=== PATIENT | male | born 1990 | race Caucasian/White ===

== ENCOUNTER → 2024-09-27 | Outpatient (CLI) | payer BC, SELFPAY ==
[2024-09-27] VITALS (8 sets, daily range): BP systolic 114–125; BP diastolic 63–79; PULSE 73–96; RESP 16–20; TEMP 36.7; O2SAT 94–97; BMI 36.6
--- NOTE | 2024-09-27 14:00 | CT_ITS ---
STUDY: CT CHEST WITH CONTRAST REASON FOR EXAM: Male, 34 years old. ABNORMAL STRESS TEST, CP LIMITED CHEST OVER READ ONLY RADIATION DOSAGE (If Supplied By Facility): CTDIvol = ( 40.70 ) mGy, DLP = ( 1999.37 ) mGycm TECHNIQUE: Transaxial imaging was performed following intravenous administration of IV 75mL Isovue-370. Individualized dose optimization techniques were used for this CT. COMPARISON: No relevant priors. FINDINGS: CHEST The lungs are normal. There is no demonstrated pleural abnormality. Normal heart and pericardium. No coronary artery calcification. Normal mediastinum. Normal hilar regions. Normal unenhanced pulmonary arteries. Normal aorta arch and descending thoracic aorta. Normal osseous structures. Fenestration of the liver. CT/Limited Chest CT Cardiac Only IMPRESSION: Normal enhanced CT chest. Electronically Signed: Leobardo Perez MD at 13:03 EDT ,
[2024-09-27] MEDS: 0.9% Saline Lock 10 ML Syringe IV ×2 (14:15→14:26)
[2024-09-27] MEDS: Metoprolol Tartrate 5 MG/5 ML Vial IV ×2 (14:15→14:26)
[2024-09-27] MEDS: Nitroglycerin SL (ED/IMG/CATH) 0.4 MG TABLET SL (14:47)
--- NOTE | 2024-09-27 17:41 | CCTA.WCONT ---
CCTA w/Cont Coronary Arteries Date of Study:: 09/27/24 Abnormal stress test Coronary Calcium Scoring: High-resolution Computed Tomographic imaging of the chest was performed on [09/27/2024], with particular attention paid to the coronary arteries. Intravenous contrast agent was administered per protocol and images reconstructed and displayed. LEFT MAIN CORONARY ARTERY: Arises from the left coronary cusp and is noted to have no significant stenosis it bifurcates the left anterior descending artery and left circumflex artery [] LEFT ANTERIOR DESCENDING CORONARY ARTERY: Medium size vessel which tapers in the midsegment it gives off a first diagonal branch and no significant atherosclerotic plaque is noted. There is no coronary calcification present. [] LEFT CIRCUMFLEX CORONARY ARTERY: Nondominant vessel with no significant atherosclerotic plaquing noted no calcification present no major luminal irregularities present. [] RIGHT CORONARY ARTERY: Dominant right coronary artery arising from the right coronary cusp and terminating with a posterior descending artery and a posterolateral vessel. No significant atherosclerotic plaque is noted. No coronary calcification is present. Conclusion: Technically limited study due to patient body size. However no significant atherosclerotic plaquing or obstruction is noted in any of the 3 major vessels.
--- OUTSIDE RECORDS SUMMARY | 2024-09-27 19:21 | XMS RPT_ITS | CCD ---
Author Organization [facility] Care Team Providers Care Affirmative Action Specialist Name Role Phone AA NO PCP, NO PCP Primary Care Unavailable RODRIGO HIRSCH Attending UnavailRODRIGO Monahan Admitting UnavailRODRIGO Monahan Admitting Unavailabl e AA NO PCP, NO PCP Primary Care Unavailable RODRIGO HIRSCH Attending Unavailcatrina e SANTOS, MD ANSON DEY Referring Unava ilable WAKER, MD ANSON DEY Attending Unava ilable WAKER, MD ANSON DEY Primary Care Radhava ilable SANTOS, MD ANSON DEY Primary Care Radhava ilable WAKESandra, MD ANSON DEY Referring Unava ilable WAKER, MD ANSON DEY Attending Radhava ilable WAKEANSON Flores Attending Unavailable ANSON GRAHAM Primary Care Unavailable Anson Graham MD Primary Care Provider [phone] Anson Graham MD Unavailable Medications Current Medications Medication Drug Class(es) Dates Sig (Normalized) Sig (Original) benzoyl peroxide 0.05 mg/mg / clindamycin 0.01 mg/mg topical gel (1 source) Lincosamide Antibacterial Start: 08-29-2022 clindamycin-benzoy l peroxide (BenzacLIN) gel Apply topically. 0 08/29/2022 Active dextromethorphan-b upropion 45-105 mg tablet, IR and ER, biphasic (1 source) Start: 12-24-2023 End: 07-11-2024 take 1 tablet by mouth twice daily dextromethorphan-b upropion 45-105 mg tablet, IR and ER, biphasic Indications: Anxiety , Moderate episode of recurrent major depressive disorder (CMS/HCC) Take 1 tablet by mouth 2 times a day. 200 tablet 1 12/24/2023 07/11/2024 Active ketoconazole 20 mg/ml medicated shampoo (1 source) Azole Antifungal Start: 05-18-2014 ketoconazole (NIZOral) 2 % shampoo Ketoconazole 2 % External Shampoo Quantity: 120 Refills: 0 Start : 18-May-2014 Active 0 05/18/2014 Active 24 hr venlafaxine 225 mg extended release oral tablet (2 sources) Serotonin and Norepinephrine Reuptake Inhibitor Start: 09-01-2023 End: 07-11-2024 take 1 tablet by mouth once daily venlafaxine 225 mg 24 hr tablet Indications: Anxiety , Current mild episode of major depressive disorder, unspecified whether recurrent (CMS/HCC) Take 1 tablet (225 mg) by mouth once daily. 100 tablet 1 12/24/2023 07/11/2024 Active Problems Problem Classification Problem Date Documented Da te Episodic/Chronic Anxiety disorders (3 sources) Anxiety disorder, unspecified; Translations: [Anxiety] Onset: 12-24-2023 Chronic Mood disorders (6 sources) Major depressive disorder, recurrent, moderate; Translations: [Major depressive disorder, single episode, mild] Onset: 12-24-2023 Chronic Results Test Name Value Interpretation Reference Range Facility Cardiology Reporton 07-11-20 Cardiology Report [facility] [address] [address] CARDIOLOGY PATIENT NAME: TAIWO JUSTIN DATE OF : 1990 MED REC #: [id number] PT LOCATION: CAR PT TYPE: CLN AGE: 31 SEX: M ADMISSION DATE: 07/11/2021 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 He has no significant past medical history. This test is being done for preemployment screening for the [employer]. PROCEDURE: The patient exercised for a total of 12 minutes 18 seconds on a Julian protocol, achieving a maximal heart rate of 173 bpm (91% of age-predicted maximal heart rate, estimated workload 13.9 METS). Baseline heart rate was 87 beats per minute. Baseline blood pressure 140/85. The blood pressure at peak exercise was 180/60. The test was terminated due to fatigue. At no time during the test did the patient describe chest discomfort. Baseline electrocardiogram demonstrated normal sinus rhythm at a rate of 87 beats per minute. There were inferior, anterior, and lateral T-wave abnormalities at baseline. There was T-wave inversion in these leads. With exercise, there were no significant supraventricular nor ventricular arrhythmias noted. At peak exercise, there was at least a millimeter of flat ST-segment depression in both the inferior and lateral leads. Typically, this would suggest inducible ischemia, but is somewhat less specific given the baseline T-wave abnormalities. IMPRESSION: 1. Abnormal treadmill stress test for inducible ischemia at a good workload. 2. Patient develops [address]-segment depression in both the inferior and lateral leads with exertion. Typically, this would suggest inducible ischemia, but is somewhat less specific given the baseline T-wave abnormalities. 3. If further information is required regarding ischemia, would consider a stress test with imaging. 4. Good to excellent exercise capacity for age. Akira Jesus MD [id number] SSI File#: [id number] CC: Rodrigo Hirsch, [facility] EDUARDO XR Chest 1 view-APon EDUARDO XR Chest 1 view-AP CLINICAL INFORMATION: Employment chest radiograph. Frontal view of the chest are provided without comparison. FINDINGS: The cardiac silhouette and mediastinum are within normal limits. The lungs are free of infiltrate or pleural effusion. The visualized soft tissues are unremarkable. IMPRESSION: 1. No evidence of an acute cardiopulmonary process. Report Dictated on Authenticated by: Amish Higuera On: 07/04/2021 00:20 Read by: AMISH HIGUERA MD Date: 07/04/2021 00:20 [facility] Vital Signs Date Time Vital Sign Value Performing Clinician Facility 12-24-2023 11:39-0500 Body height 182.9 cm Anson Graham MD Work Phone: [facility] 12-24-2023 11:39-0500 Body mass index (BMI) [Ratio] 35.4 kg/m2 Anson Graham MD Work Phone: [facility] 12-24-2023 11:39-0500 Body temperature 97.3 [degF] Anson Graham MD Work Phone: [facility] 12-24-2023 11:39-0500 Body weight 118.39 kg Anson Graham MD Work Phone: [facility] 12-24-2023 11:39-0500 Diastolic blood pressure 76 mm[Hg] Anson Graham MD Work Phone: [facility] 12-24-2023 11:39-0500 Heart rate 80 /min Anson Graham MD Work Phone: [facility] 12-24-2023 11:39-0500 Respiratory rate 16 /min Anson Graham MD Work Phone: [facility] 12-24-2023 11:39-0500 SaO2% (BldA) [Mass fraction] 97 % Anson Graham MD Work Phone: [facility] 12-24-2023 11:39-0500 Systolic blood pressure 102 mm[Hg] Anson Graham MD Work Phone: [facility] Encounters Encounter Date Encounter Type Care Provider Facility Start: 12-24-2023 End: 12-25-2023 ambulatory ANSON GRAHAM [facility] Start: 12-24-2023 End: 12-24-2023 Office outpatient visit 15 minutes Anson Graham MD Work Phone: [facility] Comment on above: Anxiety (Primary Dx) ; Moderate episode of recurrent major depressive disorder (CMS/HCC); Current mild episode of major depressive disorder, unspecified whether recurrent (CMS/HCC) Start: 03-02-2023 ambulatory MD ANSON COSTA [facility] Facility:[id number] Start: 08-29-2022 ambulatory MD ANSON COSTA [facility] Facility:[id number] Start: 07-11-2021 End: 07-11-2021 amb[facility] Start: 07-03-2021 End: 07-03-2021 ambulatory NO PCP AA NO PCP [facility] Procedures Date Procedure Procedure Detail Performing Clinician Start: 02-28-2022 Lipid 1996 panel - S go or Plasma Anson Graham MD Work Phone: Plan of Treatment Date Care Activity Detail Author Start: 2040 Zoster Vaccines (1 of 2) Zoste r Vaccines (1 of 2) [facility] Start: 02-28-2027 Lipid panel Lipid Panel [facility] Start: 11-06-2026 DTaP/Tdap/Td Vaccine s (2 - Td or Tdap) DTaP/Tdap/Td Vaccines (2 - Td or Tdap) [facility] Start: 07-31-2023 COVID-19 Vaccine ( season) COVID-19 Vaccine ( season) [facility] Start: 07-31-2023 Influenza vaccination Influenza Vacc ine (#1) [facility] Start: 12-17-2009 MMR Vaccines (1 of 1 - Standard series) MMR Vaccines (1 of 1 - Standard series) [facility] Start: 12-17-2009 Varicella vaccination Varicell a Vaccines (1 of 2 - 2-dose childhood series) [facility] Start: 2008 Hepatitis C screening Hepatitis C [place] [facility] Start: 1990 Hepatitis B Vaccines (1 of 3 - 3-dose series) Hepatitis B Vaccines (1 of 3 - 3-dose series) [facility] Start: 1990 HIV screening HIV Screening [facility] Start: 1990 Yearly Adult Physical Yearly Adult P hysical [facility] Immunizations Immunization Date Immunization Notes Care Provider Fa faye 08-29-2010 influenza virus vaccine, unspecified formulation Anson Graham MD Work Phone: [facility] Work Phone: Payers Date Payer Category Payer Unknown [id number] 2021 Unknown KENNETH BRANDT P [id number] 2021-Present [address] [place] [address] [id number] 1990 Unknown [id number] 1990 Unknown [id number] 1990 Unknown [id number] 1959 Unknown [id number] 1959 Unknown 0 Unknown [id number] Unknown [id number] Social History Date Type Detail Facility Tobacco smoking status NHIS Tobacco smoking consumption unknown [facility] Work Phone: Start: 1990 Sex Assigned At Not on file [facility] Work Phone: Gender identity Not on file [facility] Work Phone: Start: 12-14-2023 End: 12-24-2023 Exposure to SARS-CoV-2 (event) Not sure [facility] History of Present illness Narrative 12-24-2023 Anson Graham MD - 12/24/2023 11:40 AM EST Note Date & Type Note Facility 12-24-2023 History of Present illness Narrative Primary Care Physician: Anson Graham MD Date of Visit: 12/24/2023 Chief Complaint: Chief Complaint Patient presents with Med Refill Subjective: Taiwo Justin is a 33 y.o. male presents HPI: HPI Deperes/anxiety He and his have . He moved back home to [place]. Just found out that his mother has a lump in her breast and she needs a bx. Says that the effexor still helps, but he is not sure that it is helping as much as it used to. Dwp trial of auvelity. He is willing to try. Past Medical History: No past medical history on file. Social History: Family History: family history is not on file. Allergies: No Known Allergies Outpatient Medications: Current Outpatient Medications Medication Instructions clindamycin-benzoyl peroxide (BenzacLIN) gel Topical ketoconazole (NIZOral) 2 % shampoo Ketoconazole 2 % External Shampoo Quantity: 120 Refills: 0 Start : 18-May-2014 Active venlafaxine 225 mg, oral, Daily ROS: Review of Systems Psychiatric/Behavioral: Positive for dysphoric mood. Vitals: BP 102/76 (BP Location: Right arm, Patient Position: Sitting, BP Cuff Size: Adult) Pulse 80 Temp 36.3 C (97.3 F) (Temporal) Resp 16 Ht 1.829 m (6') Wt 118 kg (261 lb) SpO2 97% BMI 35.40 kg/m Wt Readings from Last 2 Encounters: 12/24/23 118 kg (261 lb) Physical Exam: Physical Exam Constitutional: Appearance: Normal appearance. HENT: Head: Normocephalic and atraumatic. Cardiovascular: Rate and Rhythm: Normal rate and regular rhythm. Heart sounds: Normal heart sounds. No murmur heard. Pulmonary: Effort: Pulmonary effort is normal. Breath sounds: Normal breath sounds. No wheezing, rhonchi or rales. Neurological: Mental Status: He is alert and oriented to person, place, and time. Sensory: Sensation is intact. Motor: Motor function is intact. Assessment/Plan Diagnoses and all orders for this visit: Anxiety - dextromethorphan-bupropion 45-105 mg tablet, IR and ER, biphasic; Take 1 tablet by mouth 2 times a day. - venlafaxine 225 mg 24 hr tablet; Take 1 tablet (225 mg) by mouth once daily. Moderate episode of recurrent major depressive disorder (CMS/HCC) - dextromethorphan-bupropion 45-105 mg tablet, IR and ER, biphasic; Take 1 tablet by mouth 2 times a day. Current mild episode of major depressive disorder, unspecified whether recurrent (CMS/HCC) - venlafaxine 225 mg 24 hr tablet; Take 1 tablet (225 mg) by mouth once daily. Orders: No orders of the defined types were placed in this encounter. Followup Appts: No future appointments. Asnon Graham MD documented in this encounter [facility] Work Phone: Evaluation note Note Date & Type Note Facility Evaluation note Diagnosis Anxiety- Primary Anxiety state, unspecified Moderate episode of recurrent major depressive disorder (CMS/HCC) Current mild episode of major depressive disorder, unspecified whether recurrent (CMS/HCC) documented in this encounter [facility] Work Phone: Summary Purpose Family History No Family History Records FoundNo Family History Records FoundNo Family History Records Found Advance Directives No Advanced Directives Records FoundNo Advanced Directives Records FoundNo Advanced Directives Records Found Additional Source Comments (unrecognized sect ion and content) No Status Records FoundNo Status Records FoundNo Status Records Found INFORMATION SOURCE (unrecogn ized section and content) DATE CREATED AUTHOR 07/27/2021 [facility] DATE CREATED AUTHOR AUTHOR'S ORGANIZ ATION 03/05/2023 [facility] DATE CREATED AUTHOR AUTHOR'S ORGANIZ ATION 12/28/2023 [facility] Ambulatory Reason for Visit (unrecogniz ed section and content) Reason Comments Med Refill Care Teams (unrecognized sec tion and content) Affirmative Action Specialist Relationship Specialty Start Date End Date Anson Graham MD [address] [place] [address] PCP - General 09/07/19 Anson Graham MD [address] [place] [address] JSOE - Kenneth CHAVEZO PCP 05/30/22 FOR RECORDS PERTAINING TO PATIENTS WHO ARE OR HAVE BEEN ENROLLED IN A CHEMICAL DEPENDENCY/SUBSTANCEABUSE PROGRAM, SOME INFORMATION MAY BE OMITTED. This clinical summary was aggregated from multiple sources. Caution should be exercised in using it in the provision of clinical care. This summary normalizes information from multiple sources, and as a consequence, information in this document may materially change the coding, format and clinical context of patient data. In addition, data may be omitted in some cases. CLINICAL DECISIONS SHOULD BE BASED ON THE PRIMARY CLINICAL RECORDS. [facility]. provides no warranty or guarantee of the accuracy or completeness of information in this document.
== END | disposition home or self-care (01) ==
PROVIDERS: Referring Provider Internal Medicine Cardiovascular Disease; Visit Provider Internal Medicine Cardiovascular Disease
DX: R07.9 Chest pain, unspecified (principal); R94.39 Abnormal result of other cardiovascular function study
CPT/HCPCS: 75574; 76380; 96374; Q9967; A4216